=== PATIENT | female | born 1995 | race Caucasian/White ===

== ENCOUNTER 2024-02-18 01:36 | Inpatient (IN) | payer BC, OTHER ==
[2024-02-18] MEDS ORDERED: Calcium Carbonate 500 MG Tab.Chew PO PRN (02:08)
[2024-02-18] MEDS ORDERED: Nalbuphine 10 MG/ML Syringe IVPUSH PRN (02:08)
[2024-02-18] MEDS ORDERED: Lidocaine 1% 50 ML MDV INJECT PRN (02:08)
[2024-02-18] MEDS ORDERED: Sodium Chloride 0.9% 10 ML Syringe FLUSH PRN (02:08)
[2024-02-18 02:34] LABS: BASOPHILS ABSOLUTE AUTO 0.1 K/mm3 (0.0-0.2); BASOPHILS PERCENT AUTO 0.4 % (0.0-1.0); EOSINOPHILS ABSOLUTE AUTO 0.1 K/mm3 (0.0-0.4); EOSINOPHILS PERCENT AUTO 0.6 % (0.0-6.0); HEMATOCRIT 40.3 % (37.0-47.0); HEMOGLOBIN 13.5 gm/dl (12.0-16.0); IMMATURE GRAN ABSOLUTE AUTO 0.33 K/mm3 (0.00-0.05); IMMATURE GRAN PERCENT AUTO 1.8 % (0.0-0.4); LYMPHOCYTES ABSOLUTE AUTO 2.5 K/mm3 (1.0-4.8); LYMPHOCYTES PERCENT AUTO 13.3 % (24.0-44.0); MEAN CORPUSCULAR HEMOGLOBIN 30.3 pg (28.0-32.0); MEAN CORPUSCULAR HGB CONC 33.5 g/dl (32.0-36.0); MEAN CORPUSCULAR VOLUME 90.4 fl (83.0-99.0); MEAN PLATELET VOLUME 10.6 fl (9.4-12.3); MONOCYTES ABSOLUTE AUTO 1.4 K/mm3 (0.0-0.8); MONOCYTES PERCENT AUTO 7.5 % (0.0-8.0); NEUTROPHILS ABSOLUTE AUTO 14.1 K/mm3 (1.8-7.7); NEUTROPHILS PERCENT AUTO 76.4 % (41.0-71.0); PLATELET COUNT,PLT 239 K/mm3 (150-400); RED BLOOD CELL COUNT 4.46 M/mm3 (4.10-5.30); WHITE BLOOD CELL COUNT,WBC 18.47 K/mm3 (3.9-11.3)
[2024-02-18] MEDS: Lactated Ringers 1,000 ML IV SCH (03:07)
[2024-02-18] MEDS: Ondansetron 4 MG/2 ML SDV IVPUSH PRN (03:17)
[2024-02-18] MEDS ORDERED: diphenhydrAMINE 50 MG/ML SDV IVPUSH PRN (04:54)
[2024-02-18] MEDS ORDERED: ePHEDrine 50 MG/ML SDV IVPUSH PRN (04:54)
[2024-02-18] MEDS: Bupivacaine/fentaNYL/NS 100 ML Bag EPIDUR PRN (05:18)
[2024-02-18] MEDS: Oxytocin/0.9 % Sodium Chloride 30 UNIT/500 ML BAG IV SCH (07:36)
[2024-02-18] MEDS ORDERED: Nalbuphine 10 MG/1 ML Vial IVPUSH PRN (08:04)
[2024-02-18] MEDS ORDERED: oxyCODONE 5 MG Tab PO PRN (08:33)
[2024-02-18 08:48] LABS: HEMATOCRIT 34.3 % (37.0-47.0); MEAN CORPUSCULAR HEMOGLOBIN 30.8 pg (28.0-32.0); MEAN CORPUSCULAR HGB CONC 33.5 g/dl (32.0-36.0); MEAN PLATELET VOLUME 10.6 fl (9.4-12.3); PLATELET COUNT,PLT 183 K/mm3 (150-400); RED BLOOD CELL COUNT 3.73 M/mm3 (4.10-5.30); WHITE BLOOD CELL COUNT,WBC 19.45 K/mm3 (3.9-11.3)
[2024-02-18 08:49] LABS: HEMOGLOBIN 11.5 gm/dl (12.0-16.0)
[2024-02-18 09:14] LABS: INR 0.97; PROTHROMBIN TIME 10.3 SECONDS (9.7-12.0)
[2024-02-18 09:16] LABS: PTT,PARTIAL THROMBOPLSTIN TIME 27.1 SECONDS (21.7-31.4)
[2024-02-18] MEDS: Sodium Chloride 0.9% 10 ML Syringe FLUSH SCH (12:15)
[2024-02-18] MEDS: Sennosides 8.6 MG Tab PO PRN (12:29)
[2024-02-18] MEDS: Ibuprofen 800 MG Tab PO SCH ×2 (12:30→17:05)
[2024-02-18] MEDS: Benzocaine/Menthol 20%-0.5% Spray 78 GM Cannister TOP PRN (12:31)
[2024-02-18] MEDS: Witch Hazel Medicated Pads 40/Jar TOP PRN (12:31)
[2024-02-18] MEDS: Acetaminophen 325 MG Tab PO PRN (20:11)
[2024-02-19 06:06] LABS: HEMATOCRIT 29.2 % (37.0-47.0); MEAN CORPUSCULAR HEMOGLOBIN 30.3 pg (28.0-32.0); MEAN CORPUSCULAR HGB CONC 32.5 g/dl (32.0-36.0); MEAN PLATELET VOLUME 10.8 fl (9.4-12.3); PLATELET COUNT,PLT 177 K/mm3 (150-400); RED BLOOD CELL COUNT 3.14 M/mm3 (4.10-5.30); WHITE BLOOD CELL COUNT,WBC 13.25 K/mm3 (3.9-11.3)
[2024-02-19 06:20] LABS: HEMOGLOBIN 9.5 gm/dl (12.0-16.0)
[2024-02-19] MEDS: Ibuprofen 800 MG Tab PO SCH (14:19)
[2024-02-20 06:11] LABS: HEMATOCRIT 27.6 % (37.0-47.0); HEMOGLOBIN 8.9 gm/dl (12.0-16.0); MEAN CORPUSCULAR HEMOGLOBIN 29.9 pg (28.0-32.0); MEAN CORPUSCULAR HGB CONC 32.2 g/dl (32.0-36.0); MEAN CORPUSCULAR VOLUME 92.6 fl (83.0-99.0); MEAN PLATELET VOLUME 10.5 fl (9.4-12.3); PLATELET COUNT,PLT 184 K/mm3 (150-400); RED BLOOD CELL COUNT 2.98 M/mm3 (4.10-5.30); WHITE BLOOD CELL COUNT,WBC 13.97 K/mm3 (3.9-11.3)
== END 2024-02-20 10:50 | disposition home or self-care (01) | DRG 542 ==
LOC: JD.OBCHECK 01:36 → JD.OB 01:39 → OBSVTOIN 07:27 → JD.OB 07:28
PROVIDERS: ADMIT Obstetrics & Gynecology; ATTEND Obstetrics & Gynecology
PROC: 10D07Z3 Extraction of Products of Conception, Low Forceps, Via Natural or Artificial Opening (ICD-10-PCS; principal; 2024-02-18)
PROC: 0DQR0ZZ Repair Anal Sphincter, Open Approach (ICD-10-PCS; 2024-02-18)
PROC: 3E0R3BZ Introduction of Anesthetic Agent into Spinal Canal, Percutaneous Approach (ICD-10-PCS; 2024-02-18)
PROC: 00HU33Z Insertion of Infusion Device into Spinal Canal, Percutaneous Approach (ICD-10-PCS; 2024-02-18)
DX: O69.81X0 Labor and delivery complicated by cord around neck, without compression, not applicable or unspecified (principal); Z3A.39 39 weeks gestation of pregnancy; Z37.0 Single live birth; O70.20 Third degree perineal laceration during delivery, unspecified; O72.1 Other immediate postpartum hemorrhage; O90.81 Anemia of the puerperium; D62 Acute posthemorrhagic anemia
CPT/HCPCS: 36415; 51701; 59025; 59409; 85025; 85027; 85384; 85610; 85730; 86592; 86850; 86900; 86901; A9270-GY; C1758; J2405; J3490; J7120; J7999